=== PATIENT | female | born 1970 | race Caucasian/White ===

== ENCOUNTER 2018-06-22 12:10 | Day surgery (SDC) | payer BC ==
[~2018-06-22] VITALS: Ht 152.4 cm; Wt 65.5 kg
[2018-06-22] MEDS ORDERED: LACTATED RINGERS 1,000 ML IV SCH ×2 (13:04→17:07)
[2018-06-22] MEDS ORDERED: NONE PER PT (13:11)
[2018-06-22 13:15] VITALS: BP 103/68
[2018-06-22 13:29] LABS: ALANINE AMINOTRANSFERASE 24 U/L (12-78); ALBUMIN 3.8 g/dL (3.4-5.0); ANION GAP 6 mmol/L (5-15); CALCIUM 8.8 mg/dL (8.5-10.1); CHLORIDE 110 mmol/L (98-107); CREATININE 0.71 mg/dL (0.55-1.02)
[2018-06-22] MEDS ORDERED: PLEASE ENTER HEIGHT AND WEIGHT MC SCH (13:30)
[2018-06-22 13:32] LABS: ALKALINE PHOSPHATASE 80 U/L (45-117); BILIRUBIN,TOTAL 0.7 mg/dL (0.2-1.0); TOTAL PROTEIN 7.6 g/dL (6.4-8.2)
[2018-06-22] MEDS ORDERED: MIDAZOLAM 1 MG/ML, 2ML ONE (14:55)
[2018-06-22] MEDS ORDERED: FENTANYL PF 250 MCG/5ML ONE (14:56)
[2018-06-22] MEDS ORDERED: BUPIVACAINE/PF-EPI 0.5% 1:200K ONE (15:44)
[2018-06-22] MEDS ORDERED: ROCURONIUM 10 MG/ML,10ML ONE (15:57)
[2018-06-22] MEDS ORDERED: GLYCOPYRROLATE 0.2MG/1ML, 5ML ONE (15:57)
[2018-06-22] MEDS ORDERED: PROPOFOL 10 MG/ML, 20ML ONE (15:57)
[2018-06-22] MEDS ORDERED: NEOSTIGMINE 1 MG/ML, 10ML ONE (15:57)
[2018-06-22] MEDS ORDERED: KETOROLAC 30 MG/1 ML ONE (15:57)
[2018-06-22] MEDS ORDERED: CEFOTETAN 1 GM ONE (15:57)
[2018-06-22] MEDS ORDERED: DEXAMETHASONE 4 MG/ML, 1ML ONE (15:57)
[2018-06-22] MEDS ORDERED: ONDANSETRON 2MG/ML, 2ML ONE (15:57)
[2018-06-22] MEDS ORDERED: FENTANYL PF 100 MCG/2ML ONE (17:15)
[2018-06-22] MEDS ORDERED: OXYcodone 5 MG/5 ML ORAL.SOL UDC ONE (17:16)
[2018-06-22] MEDS: FENTANYL PF 100 MCG/2ML IV PRN ×2 (17:28→17:41)
[2018-06-22] MEDS ORDERED: PROMETHAZINE 25 MG/ML, 1ML IV PRN (17:30)
[2018-06-22] MEDS ORDERED: morphine SULFATE 10 MG/ML, 1ML IVPush PRN (17:30)
[2018-06-22] MEDS ORDERED: PROMETHAZINE 25 MG/ML, 1ML IM PRN (17:30)
[2018-06-22] MEDS ORDERED: ALBUTEROL SULFATE 2.5 MG/3 ML NPPB PRN (17:30)
[2018-06-22] MEDS ORDERED: OXYcodone 5 MG/5 ML ORAL.SOL UDC PO PRN (17:30)
[2018-06-22] MEDS ORDERED: ONDANSETRON 2MG/ML, 2ML IVPush PRN (17:30)
[2018-06-22] MEDS ORDERED: HYDROmorphone 2 MG/ML, 1ML IVPush PRN (17:30)
[2018-06-22] MEDS ORDERED: hydrALAzine 20 MG/ML, 1ML IV PRN (17:30)
[2018-06-22] MEDS ORDERED: HALOPERIDOL 5 MG/ML IV PRN (17:30)
[2018-06-22] MEDS ORDERED: LABETALOL 5MG/ML, 20ML IV PRN (17:30)
[2018-06-22 19:45] VITALS: BP 115/76
== END 2018-06-22 23:25 | disposition home or self-care (01) ==
LOC: OUT 12:10 → 4NOR 18:13 → OUT 23:25
PROVIDERS: ATTEND Surgery
DX: K80.10 Calculus of gallbladder with chronic cholecystitis without obstruction (principal)
CPT/HCPCS: 36415; 47562; 80053; 81025; 88304; J1100; J1885; J2250; J2270; J2405; J2550; J2704; J2710; J3010; J3490; J7120; G0378